=== PATIENT | male | born 1940 | race African-American/Black ===

== ENCOUNTER 2021-05-08 20:41 | Emergency (ER) | payer MEDICARE, MEDICAID | END 2021-05-08 23:59 | LOC: NAV ERS 20:41 | DX: M25.551 Pain in right hip (principal); M25.552 Pain in left hip; R41.0 Disorientation, unspecified; I10 Essential (primary) hypertension; E78.5 Hyperlipidemia, unspecified; M19.90 Unspecified osteoarthritis, unspecified site; G30.9 Alzheimer's disease, unspecified; F02.80 Dementia in other diseases classified elsewhere, unspecified severity, without behavioral disturbance, psychotic disturbance, mood disturbance, and anxiety; Z79.899 Other long term (current) drug therapy; W17.89XA Other fall from one level to another, initial encounter; Y92.129 Unspecified place in nursing home as the place of occurrence of the external cause ==

== ENCOUNTER 2021-05-30 04:15 | Emergency (ER) | payer OTHER, MEDICARE, MEDICAID | END 2021-05-30 05:45 | LOC: NAV ERS 04:15 | DX: Z04.3 Encounter for examination and observation following other accident (principal); F03.90 Unspecified dementia, unspecified severity, without behavioral disturbance, psychotic disturbance, mood disturbance, and anxiety; I10 Essential (primary) hypertension; E78.5 Hyperlipidemia, unspecified; Z79.899 Other long term (current) drug therapy | CPT/HCPCS: 99283 ==

== ENCOUNTER 2021-09-19 14:42 | Emergency (ER) | payer MEDICARE, OTHER ==
[2021-09-19] MEDS ORDERED: Sodium Chloride 0.9% 1,000 ML ONE ×2 (15:15→18:57)
[2021-09-19 15:18] LABS: #Eosinphils 0.2 thou/uL (0.0-0.7); #Lymphocytes 1.5 thou/uL (1.20-3.40); #Monocytes 0.8 thou/uL (0.11-0.59); #Neutrophils 7.6 thou/uL (1.40-6.50); %Basophils 0.5 % (0.0-1.0); %Eosinophils 2.2 % (0.0-10.0); %Lymphocytes 14.9 % (21.0-51.0); %Monocytes 7.7 % (0.0-10.0); %Neutrophils 74.8 % (42.0-75.0); Hemoglobin 11.4 g/dL (14.0-18.0); Mean Corpuscular HGB CONC 31.8 g/dL (32.0-36.0); Mean Corpuscular Hemoglobin 27.1 pg (27.0-31.0); Mean Corpuscular Volume 85.3 fL (78.0-98.0); Mean Platelet Volume 8.4 fL (7.4-10.4); Platelet Count 234 thou/uL (130-400); RBC Distribution Width 14.8 % (11.5-14.5); Red Blood Cell (RBC) Count 4.22 mill/uL (4.70-6.10); White Blood Cell (WBC) Count 10.1 thou/uL (4.8-10.8)
[2021-09-19 15:31] LABS: ALT (SGPT) 33 U/L (8-55); AST (SGOT) 49 U/L (5-34); Albumin 3.1 g/dL (3.4-4.8); Alkaline Phosphatase 96 U/L (40-110); Anion Gap 23 mmol/L (10-20); Bilirubin, Total 0.5 mg/dL (0.2-1.2); Calc. Creatinine Clearance 0 mL/min (70-130); Calcium 9.4 mg/dL (7.8-10.44); Carbon Dioxide 22 mmol/L (23-31); Chloride 112 mmol/L (98-107); Glucose 131 mg/dL (83-110); Potassium 4.3 mmol/L (3.5-5.1); Protein, Total 8.1 g/dL (5.8-8.1); Sodium 153 mmol/L (136-145)
[2021-09-19 15:46] LABS: BUN (Urea Nitrogen) 185 mg/dL (8.4-25.7)
[2021-09-19 15:51] LABS: CKMB 1.5 ng/mL (0-6.6)
[2021-09-19] MEDS ORDERED: Aspirin Chewable 81 MG TAB ONE (16:07)
[2021-09-19 17:10] LABS: Bilirubin Small (Negative); Blood, Urine Moderate (Negative); Clarity Cloudy (Clear); Glucose, Urine (Dipstick) Negative (Negative); Ketone, Urine Negative (Negative); Leukocyte Large (Negative); Nitrite Negative (Negative); Protein, Urine (Dipstick) 30 mg/dL (Neg-Trace); Urobilinogen 0.2 mg/dL (Less than 2)
[2021-09-19 17:29] LABS: Amphetamine Not Detected (NotDetected); Bacteria/HPF 3+ HPF (None Seen); Barbiturates Screen Not Detected (NotDetected); Benzodiazepine Screen Not Detected (NotDetected); Cocaine Metabolite Screen Not Detected (NotDetected); Medtox Control Line Valid? VALID (VALID); Methadone Not Detected (NotDetected); Methamphetamine Not Detected (NotDetected); Opiate Screen Not Detected (NotDetected); Oxycodone Screen Not Detected (NotDetected); Phencyclidine (PCP) Not Detected (NotDetected); RBC/HPF 21-50 HPF (0-3); THC/Cannabinoid Screen Not Detected (NotDetected); Tricyclic Screen Not Detected (NotDetected); WBC/HPF Greater Than 50 HPF (0-3)
[2021-09-19] MEDS ORDERED: cefTRIAXone\\ROCEPHIN 2 GM VIAL ONE (17:37)
[2021-09-19] MEDS ORDERED: Sodium Chloride 0.9% 100 ML ONE (17:47)
[2021-09-19 18:39] LABS: Anion Gap 20 mmol/L (10-20); Calc. Creatinine Clearance 0 mL/min (70-130); Calcium 8.6 mg/dL (7.8-10.44); Carbon Dioxide 21 mmol/L (23-31); Chloride 116 mmol/L (98-107); Glucose 118 mg/dL (83-110); Potassium 3.2 mmol/L (3.5-5.1); Sodium 154 mmol/L (136-145)
[2021-09-19 18:59] LABS: BUN (Urea Nitrogen) 215 mg/dL (8.4-25.7)
[2021-09-19] MEDS ORDERED: Dextrose 5 %-0.45 % NaCl 1,000 ML ONE (20:34)
[2021-09-19 23:26] LABS: Anion Gap 20 mmol/L (10-20); Calc. Creatinine Clearance 0 mL/min (70-130); Calcium 8.9 mg/dL (7.8-10.44); Carbon Dioxide 22 mmol/L (23-31); Chloride 114 mmol/L (98-107); Glucose 145 mg/dL (83-110); Potassium 3.6 mmol/L (3.5-5.1); Sodium 152 mmol/L (136-145)
[2021-09-19 23:28] LABS: Troponin I 0.085 ng/mL (< 0.028)
[2021-09-19 23:53] LABS: BUN (Urea Nitrogen) Greater than 125 mg/dL (8.4-25.7)
[2021-09-20] MEDS ORDERED: Acetaminophen 325 MG TAB PO PRN (00:23)
[2021-09-20] MEDS ORDERED: Donepezil HCl 10 MG TAB PO SCH ×2 (00:30→21:00)
[2021-09-20] MEDS ORDERED: OXcarbazepine 150 MG TAB PO SCH ×2 (00:30→09:00)
[2021-09-20] MEDS ORDERED: traZODone HCl 50 MG TAB PO SCH ×2 (00:30→09:00)
[2021-09-20] MEDS ORDERED: Dextrose 5 %-0.45 % NaCl 1,000 ML ONE (01:59)
[2021-09-20 05:42] LABS: #Eosinphils 0.3 thou/uL (0.0-0.7); #Lymphocytes 1.1 thou/uL (1.20-3.40); #Monocytes 0.7 thou/uL (0.11-0.59); #Neutrophils 7.3 thou/uL (1.40-6.50); %Basophils 0.4 % (0.0-1.0); %Lymphocytes 11.5 % (21.0-51.0); %Monocytes 7.2 % (0.0-10.0); %Neutrophils 77.8 % (42.0-75.0); Hemoglobin 10.8 g/dL (14.0-18.0); Mean Corpuscular HGB CONC 31.5 g/dL (32.0-36.0); Mean Corpuscular Hemoglobin 27.1 pg (27.0-31.0); Mean Platelet Volume 10.1 fL (7.4-10.4); Platelet Count 192 thou/uL (130-400); RBC Distribution Width 14.5 % (11.5-14.5); Red Blood Cell (RBC) Count 3.98 mill/uL (4.70-6.10); White Blood Cell (WBC) Count 9.4 thou/uL (4.8-10.8)
[2021-09-20 05:54] LABS: ALT (SGPT) 29 U/L (8-55); AST (SGOT) 40 U/L (5-34); Albumin 2.8 g/dL (3.4-4.8); Alkaline Phosphatase 86 U/L (40-110); Anion Gap 17 mmol/L (10-20); Bilirubin, Total 0.4 mg/dL (0.2-1.2); Calc. Creatinine Clearance 0 mL/min (70-130); Calcium 8.8 mg/dL (7.8-10.44); Carbon Dioxide 23 mmol/L (23-31); Chloride 114 mmol/L (98-107); Globulin 4.1 g/dL (2.4-3.5); Glucose 201 mg/dL (83-110); Potassium 3.4 mmol/L (3.5-5.1); Protein, Total 6.9 g/dL (5.8-8.1); Sodium 151 mmol/L (136-145)
[2021-09-20 05:55] LABS: Troponin I 0.058 ng/mL (< 0.028)
[2021-09-20 06:06] LABS: BUN (Urea Nitrogen) Greater than 125 mg/dL (8.4-25.7)
[2021-09-20] MEDS ORDERED: Timolol 0.5% Ophth Soln 5 ml Bottle EA EYE SCH (09:00)
[2021-09-20] MEDS ORDERED: Amlodipine 10 MG TAB PO SCH (09:00)
[2021-09-20] MEDS ORDERED: Ascorbic Acid 500 mg Chewable Tablet PO SCH (09:00)
[2021-09-20] MEDS ORDERED: cefTRIAXone\\ROCEPHIN 2 GM VIAL ONE (18:20)
[2021-09-20] MEDS ORDERED: Sodium Chloride 0.9% 100 ML ONE (18:20)
== END 2021-09-19 22:46 | disposition short-term general hospital (02) ==
LOC: NAV ERS 14:42
DX: U07.1 COVID-19 (principal); N17.9 Acute kidney failure, unspecified; N39.0 Urinary tract infection, site not specified; E87.0 Hyperosmolality and hypernatremia; R77.8 Other specified abnormalities of plasma proteins; R41.82 Altered mental status, unspecified; I10 Essential (primary) hypertension; E78.5 Hyperlipidemia, unspecified; Z79.899 Other long term (current) drug therapy
CPT/HCPCS: 36415; 51701; 70450; 71045; 80053; 80306; 81003; 81015; 82140; 82553; 83605; 83735; 84484; 85025; 87077; 87086; 87186; 93005; 94760; 96365; 96366; J0696; J3490; J7042; J7050